=== PATIENT | male | born 2000 | race African-American/Black ===

== ENCOUNTER 2025-03-11 02:58 | Emergency (ER) | payer OTHER ==
[~2025-03-11] VITALS: Ht 188 cm; Wt 106.0 kg
[2025-03-11 03:17] VITALS: O2SAT 99
[2025-03-11 04:12] VITALS: TEMP 36.7; O2SAT 98
[2025-03-11 04:35] VITALS: BP 123/69; PULSE 82; RESP 18
[2025-03-11] MEDS: IBUPROFEN 600MG TABLET PO ONE (04:35)
[2025-03-11] MEDS ORDERED: IBUP-2029 MT (04:37)
== END 2025-03-11 04:42 | disposition home or self-care (01) ==
LOC: ER 02:58
DX: S90.01XA Contusion of right ankle, initial encounter (principal); Z98.890 Other specified postprocedural states; Z79.899 Other long term (current) drug therapy; V49.40XA Driver injured in collision with unspecified motor vehicles in traffic accident, initial encounter; Y93.89 Activity, other specified; Y92.89 Other specified places as the place of occurrence of the external cause; Y99.8 Other external cause status
CPT/HCPCS: 99283; 73610; A6449